=== PATIENT | male | born 1945 | race Caucasian/White ===

== ENCOUNTER → 2017-04-01 | Outpatient (CLI) | payer MEDICARE, OTHER ==
[~2017-04-01] MED LIST: AMAN100T PO; ASPI-1197 PO; CHOL200074 PO; ESCI20TA36 PO; FLUN25H NS; FURO20TA4 PO; LEVO100T12 PO; LORA0.5T2 PO; MULT-1258 PO; NABU500T3 PO; PANT40TA25 PO; POTA20TA82 PO; PRAV40TA3 PO; PREG75 PO; PROP80TA4 PO; QUET100T70 PO; RIVA4.5C5 PO; ROPI3TAB3 PO; TRIH2TAB3 PO; VERE240SR PO; VITA100049 PO
== END | disposition home or self-care (01) ==
LOC: SHCH 10:07
PROVIDERS: ATTEND Internal Medicine Cardiovascular Disease
DX: I10 Essential (primary) hypertension (principal)
CPT/HCPCS: 93306

== ENCOUNTER → 2017-04-17 | Outpatient (CLI) | payer MEDICARE, OTHER ==
[~2017-04-17] MED LIST changes: +REGADENOSON 0.4 MG/5 ML PF SYG IVP SCH
== END | disposition home or self-care (01) ==
LOC: SHCH 08:56
PROVIDERS: ATTEND Internal Medicine Cardiovascular Disease
DX: R07.9 Chest pain, unspecified (principal); R06.00 Dyspnea, unspecified
CPT/HCPCS: 78452; 93017; 96374; A9500 ×2; J2785

== ENCOUNTER 2017-06-07 19:27 | Observation (INO) | payer MEDICARE, OTHER ==
[~2017-06-07] VITALS: Ht 185.4 cm; Wt 149.1 kg
[2017-06-07 20:23] LABS: BASOPHILS % (AUTO) 1.2 % (0.0-5.0); EOSINOPHILS % (AUTO) 3.7 % (0.0-8.0); HEMATOCRIT 39.4 % (42-54); LYMPHOCYTES % (AUTO) 22.4 % (21.0-51.0); MEAN CORPUSCULAR HEMOGLOBIN 31.6 pg (27.0-33.0); MEAN CORPUSCULAR HGB CONC 35.3 g/dL (32.0-36.0); MEAN CORPUSCULAR VOLUME 89.6 fL (79-99); MONOCYTES % (AUTO) 9.1 % (3.0-13.0); NEUTROPHILS % (AUTO) 63.6 % (40.0-77.0); PLATELET COUNT (AUTO) 172 K/uL (130-400); RED BLOOD CELL COUNT(AUTO) 4.39 MIL/uL (4.50-6.20); RED CELL DISTRIBUTION WIDTH 13.2 % (11.0-15.5); WHITE BLOOD COUNT (AUTO) 7.6 K/uL (4.8-10.8)
[2017-06-07] MEDS ORDERED: ASPIRIN 325 MG TABLET ONE (20:31)
[2017-06-07 20:38] LABS: INR 0.95 (0.85-1.15); PARTIAL THROMBOPLASTIN TIME 26.7 SEC (26.3-35.5)
[2017-06-07 21:40] LABS: CREATININE 1.2 mg/dL (0.5-1.5); POTASSIUM 4.2 mmol/L (3.5-5.1)
[2017-06-07 21:45] LABS: ALBUMIN 3.1 g/dL (3.5-5.0); BILIRUBIN,TOTAL 0.4 mg/dL (0.2-1.0); TOTAL PROTEIN, SERUM 6.6 g/dL (6.0-8.3)
[2017-06-07] MEDS ORDERED: IOPAMIDOL-370 100 ML VIAL IV ONE (21:59)
[2017-06-07 23:57] VITALS: BP 164/73
[2017-06-08] MEDS ORDERED: AMAN100T PO (00:54)
[2017-06-08] MEDS ORDERED: PRAV40TA3 PO (00:54)
[2017-06-08] MEDS ORDERED: PANT40TA25 PO (00:54)
[2017-06-08] MEDS ORDERED: FLUN25H NS (00:54)
[2017-06-08] MEDS ORDERED: TRIH2TAB3 PO (00:54)
[2017-06-08] MEDS ORDERED: ESCI20TA36 PO (00:54)
[2017-06-08] MEDS ORDERED: QUET100T70 PO (00:54)
[2017-06-08] MEDS ORDERED: PROP80TA4 PO (00:54)
[2017-06-08] MEDS ORDERED: PREG75 PO (00:54)
[2017-06-08] MEDS ORDERED: RIVA4.5C5 PO (00:54)
[2017-06-08] MEDS ORDERED: CHOL200074 PO (00:54)
[2017-06-08] MEDS ORDERED: VITA100049 PO (00:54)
[2017-06-08] MEDS ORDERED: FURO20TA4 PO (00:54)
[2017-06-08] MEDS ORDERED: ASPI-1197 PO (00:54)
[2017-06-08] MEDS ORDERED: ROPI3TAB3 PO (00:54)
[2017-06-08] MEDS ORDERED: VERE240SR PO (00:54)
[2017-06-08] MEDS ORDERED: MULT-1258 PO (00:54)
[2017-06-08] MEDS ORDERED: NABU500T3 PO (00:54)
[2017-06-08] MEDS ORDERED: LORA0.5T2 PO (00:54)
[2017-06-08] MEDS ORDERED: POTA20TA82 PO (00:54)
[2017-06-08] MEDS ORDERED: LEVO100T12 PO (00:54)
[2017-06-08 03:29] VITALS: BP 142/76
[2017-06-08 07:05] VITALS: BP 156/85
[2017-06-08] MEDS ORDERED: ASPIRIN 325 MG TABLET PO SCH ×2 (09:00)
[2017-06-08] MEDS ORDERED: PANTOPRAZOLE SODIUM 40 MG TABLET.DR PO SCH ×2 (09:00)
[2017-06-08] MEDS ORDERED: GADOBENATE DIMEGLUMINE 20 ML IV ONE (09:41)
[2017-06-08 11:10] VITALS: BP 159/76
[2017-06-08 16:15] VITALS: BP 148/81
== END 2017-06-08 18:29 | disposition home or self-care (01) ==
LOC: EDH 19:27 → EDHIP 21:32 → 2AH 23:45
PROVIDERS: ADMIT Internal Medicine; ATTEND Internal Medicine
DX: G45.9 Transient cerebral ischemic attack, unspecified (principal); E03.9 Hypothyroidism, unspecified; E78.5 Hyperlipidemia, unspecified; I25.10 Atherosclerotic heart disease of native coronary artery without angina pectoris; G47.30 Sleep apnea, unspecified; K21.9 Gastro-esophageal reflux disease without esophagitis; G20 Parkinson's disease; F02.80 Dementia in other diseases classified elsewhere, unspecified severity, without behavioral disturbance, psychotic disturbance, mood disturbance, and anxiety; Z96.651 Presence of right artificial knee joint
CPT/HCPCS: 36415; 70450; 70496; 70498; 70544; 70553; 80053; 82948; 85025; 85610; 85730; 93005; 99291; A9577; G0378 ×21; Q9967

== ENCOUNTER 2018-02-05 12:33 | Inpatient (IN) | payer MEDICARE, OTHER ==
[~2018-02-05] VITALS: Ht 185.4 cm; Wt 144.4 kg
[~2018-02-05 12:33] MED LIST changes: -REGADENOSON 0.4 MG/5 ML PF SYG IVP SCH; -ROPI3TAB3 PO; +ROPI3TAB5 PO
[2018-02-05 13:54] LABS: BASOPHILS % (AUTO) 1.5 % (0.0-5.0); EOSINOPHILS % (AUTO) 4.2 % (0.0-8.0); LYMPHOCYTES % (AUTO) 19.8 % (21.0-51.0); MEAN CORPUSCULAR HEMOGLOBIN 31.5 pg (27.0-33.0); MEAN CORPUSCULAR HGB CONC 34.2 g/dL (32.0-36.0); MEAN CORPUSCULAR VOLUME 92.2 fL (79-99); MONOCYTES % (AUTO) 9.1 % (3.0-13.0); NEUTROPHILS % (AUTO) 65.4 % (40.0-77.0); PLATELET COUNT (AUTO) 141 K/uL (130-400); RED BLOOD CELL COUNT(AUTO) 4.66 MIL/uL (4.50-6.20); RED CELL DISTRIBUTION WIDTH 13.3 % (11.0-15.5)
[2018-02-05 14:03] LABS: CREATININE 1.2 mg/dL (0.5-1.5); POTASSIUM 3.8 mmol/L (3.5-5.1)
[2018-02-05 14:08] LABS: ALBUMIN 3.5 g/dL (3.5-5.0); BILIRUBIN,TOTAL 0.5 mg/dL (0.2-1.0)
[2018-02-05 14:22] LABS: APPEARANCE,URINE Clear (CLEAR); BILIRUBIN,URINE Negative (NEGATIVE); COLOR,URINE Yellow (YELLOW); GLUCOSE, URINE (UA) Negative (NEGATIVE); KETONES,URINE Negative (NEGATIVE); LEUKOCYTE ESTERASE ,URINE Negative (NEGATIVE); NITRATE,URINE Negative (NEGATIVE); OCCULT BLOOD,URINE Negative (NEGATIVE); PROTEIN,URINE Negative (NEGATIVE); UROBILINOGEN,URINE 0.2 mg/dL (0.2-1.0)
[2018-02-05] MEDS ORDERED: FAMOTIDINE 20MG TAB 20 MG TAB ONE (17:24)
[2018-02-05 19:40] VITALS: BP 140/80
[2018-02-05] MEDS: FAMOTIDINE 20MG TAB 20 MG TAB PO SCH (21:00)
[2018-02-06] VITALS (7 sets, daily range): BP systolic 114–168; BP diastolic 60–98
[2018-02-06] MEDS ORDERED: LORAZEPAM 0.5 MG TABLET PO PRN (02:00)
[2018-02-06] MEDS ORDERED: PANT40TA25 PO (02:05)
[2018-02-06] MEDS ORDERED: ROPI2TAB2 PO (02:05)
[2018-02-06] MEDS ORDERED: BUDE10.2 IH (02:05)
[2018-02-06] MEDS ORDERED: RIVA6CAP5 PO (02:05)
[2018-02-06] MEDS ORDERED: OXYB5TAB10 PO (02:05)
[2018-02-06] MEDS ORDERED: ASPI-1012 PO (02:05)
[2018-02-06] MEDS ORDERED: LORA0.5T2 PO (02:05)
[2018-02-06] MEDS ORDERED: VERE240SR PO (02:05)
[2018-02-06] MEDS ORDERED: TRIH2TAB3 PO (02:05)
[2018-02-06] MEDS ORDERED: ESCI20TA36 PO (02:05)
[2018-02-06] MEDS ORDERED: GABA-531 PO (02:05)
[2018-02-06] MEDS ORDERED: QUET100T70 PO (02:05)
[2018-02-06] MEDS ORDERED: ALBUHFA IH (02:05)
[2018-02-06] MEDS ORDERED: ALBUTEROL SULFATE 0.083% 2.5 MG/3 ML INH IH PRN (06:45)
[2018-02-06] MEDS: OXYBUTYNIN CHLORIDE 5 MG TABLET PO SCH (09:00)
[2018-02-06] MEDS: GABAPENTIN 300 MG CAPSULE PO SCH ×2 (09:00→20:25)
[2018-02-06] MEDS: AMANTADINE HCL 100 MG CAPSULE PO SCH ×2 (09:00→20:24)
[2018-02-06] MEDS: MULTIVITAMIN TABLET PO SCH (09:00)
[2018-02-06] MEDS: FLUNISOLIDE 25 MCG/SPRAY 25 ML NASAL SPRY NASAL SCH ×2 (09:00→20:24)
[2018-02-06] MEDS: CITALOPRAM 20 MG TABLET PO SCH (09:00)
[2018-02-06] MEDS: RIVASTIGMINE 6 MG PO SCH ×2 (09:00→20:24)
[2018-02-06] MEDS: LEVOTHYROXINE 100 MCG TABLET PO SCH (09:00)
[2018-02-06] MEDS: FAMOTIDINE 20MG TAB 20 MG TAB PO SCH ×2 (09:00→20:25)
[2018-02-06] MEDS: VERAPAMIL HCL 240 MG SRTAB PO SCH (09:00)
[2018-02-06] MEDS: ROPINIROLE HCL 1 MG TABLET PO SCH ×3 (09:00→20:25)
[2018-02-06] MEDS: PANTOPRAZOLE SODIUM 40 MG TABLET.DR PO SCH (09:00)
[2018-02-06] MEDS: QUETIAPINE FUMARATE 100 MG TAB PO SCH (09:00)
[2018-02-06] MEDS: FUROSEMIDE 20 MG TABLET PO SCH (09:00)
[2018-02-06] MEDS: ASPIRIN 325 MG TABLET PO SCH (09:00)
[2018-02-06] MEDS: [UNRECOGNIZED DRUG - OTHER] PO SCH (09:00)
[2018-02-06] MEDS: TRIHEXYPHENIDYL 2 MG PO SCH ×2 (09:00→20:24)
[2018-02-06] MEDS: ALBUTEROL SULFATE 0.083% 2.5 MG/3 ML INH IH SCH ×3 (11:17→23:38)
--- NOTE | 2018-02-06 14:04 | NUR ---
DCP CM met with pt discussed dc plans. Pt is independent prior to admission, lives at home with spouse. Has a walker, quad cane, cpap. Denies any other equipments/services. Pt feels safe to go back home, spouse able to assist with transportation and needs as necessary. DC plan to home once stable. CM to cont to follow up. Addendum: 02/06/18 at 1405 by TEODORA ROGERS LVN CM Amended: Links added.
[2018-02-06] MEDS: BUDESONIDE 0.5 MG/2 ML INH IH SCH (19:37)
[2018-02-06] MEDS ORDERED: ATORVASTATIN CALCIUM 10 MG TABLET PO SCH (21:00)
[2018-02-06] MEDS ORDERED: QUETIAPINE FUMARATE 100 MG TAB PO SCH (21:00)
[2018-02-07 04:30] VITALS: BP 124/73
[2018-02-07 05:47] LABS: BASOPHILS % (AUTO) 1.2 % (0.0-5.0); EOSINOPHILS % (AUTO) 4.4 % (0.0-8.0); HEMATOCRIT 39.9 % (42-54); LYMPHOCYTES % (AUTO) 23.2 % (21.0-51.0); MEAN CORPUSCULAR HEMOGLOBIN 31.6 pg (27.0-33.0); MEAN CORPUSCULAR HGB CONC 34.2 g/dL (32.0-36.0); MEAN CORPUSCULAR VOLUME 92.3 fL (79-99); MONOCYTES % (AUTO) 9.2 % (3.0-13.0); PLATELET COUNT (AUTO) 142 K/uL (130-400); RED BLOOD CELL COUNT(AUTO) 4.32 MIL/uL (4.50-6.20); RED CELL DISTRIBUTION WIDTH 13.8 % (11.0-15.5); WHITE BLOOD COUNT (AUTO) 5.5 K/uL (4.8-10.8)
[2018-02-07 06:03] LABS: ALBUMIN 3.2 g/dL (3.5-5.0); BILIRUBIN,TOTAL 0.7 mg/dL (0.2-1.0); CREATININE 1.2 mg/dL (0.5-1.5); TOTAL PROTEIN, SERUM 6.4 g/dL (6.0-8.3)
[2018-02-07] MEDS: ALBUTEROL SULFATE 0.083% 2.5 MG/3 ML INH IH SCH ×2 (06:37→11:02)
[2018-02-07] MEDS: BUDESONIDE 0.5 MG/2 ML INH IH SCH (06:37)
[2018-02-07] MEDS: ASPIRIN 325 MG TABLET PO SCH (09:00)
[2018-02-07] MEDS: PANTOPRAZOLE SODIUM 40 MG TABLET.DR PO SCH (09:00)
[2018-02-07] MEDS: QUETIAPINE FUMARATE 100 MG TAB PO SCH (09:00)
[2018-02-07] MEDS: [UNRECOGNIZED DRUG - OTHER] PO SCH (09:00)
[2018-02-07] MEDS: ROPINIROLE HCL 1 MG TABLET PO SCH (09:00)
[2018-02-07] MEDS: FLUNISOLIDE 25 MCG/SPRAY 25 ML NASAL SPRY NASAL SCH (09:00)
[2018-02-07] MEDS: CITALOPRAM 20 MG TABLET PO SCH (09:00)
[2018-02-07] MEDS: RIVASTIGMINE 6 MG PO SCH (09:00)
[2018-02-07] MEDS: VERAPAMIL HCL 240 MG SRTAB PO SCH (09:00)
[2018-02-07] MEDS: LEVOTHYROXINE 100 MCG TABLET PO SCH (09:00)
[2018-02-07] MEDS: GABAPENTIN 300 MG CAPSULE PO SCH (09:00)
[2018-02-07] MEDS: TRIHEXYPHENIDYL 2 MG PO SCH (09:00)
[2018-02-07] MEDS: FUROSEMIDE 20 MG TABLET PO SCH (09:00)
[2018-02-07] MEDS: OXYBUTYNIN CHLORIDE 5 MG TABLET PO SCH (09:00)
[2018-02-07] MEDS: MULTIVITAMIN TABLET PO SCH (09:00)
[2018-02-07] MEDS: FAMOTIDINE 20MG TAB 20 MG TAB PO SCH (09:00)
[2018-02-07] MEDS: AMANTADINE HCL 100 MG CAPSULE PO SCH (09:00)
[2018-02-07 09:48] VITALS: BP 141/84
== END 2018-02-07 12:55 | disposition home or self-care (01) | DRG 552 ==
LOC: EDH 12:33 → EDHIP 15:24 → INTOOBSV 15:24 → OBSVTOIN 15:24 → 3DH 18:59
PROVIDERS: ADMIT Internal Medicine; ATTEND Internal Medicine
DX: M48.02 Spinal stenosis, cervical region (principal); F05 Delirium due to known physiological condition; E03.9 Hypothyroidism, unspecified; E78.5 Hyperlipidemia, unspecified; F02.80 Dementia in other diseases classified elsewhere, unspecified severity, without behavioral disturbance, psychotic disturbance, mood disturbance, and anxiety; G31.83 Neurocognitive disorder with Lewy bodies; G47.30 Sleep apnea, unspecified; I10 Essential (primary) hypertension; I25.10 Atherosclerotic heart disease of native coronary artery without angina pectoris; K21.9 Gastro-esophageal reflux disease without esophagitis; M48.061 Spinal stenosis, lumbar region without neurogenic claudication; M50.31 Other cervical disc degeneration, high cervical region; M51.36 Other intervertebral disc degeneration, lumbar region; Z96.651 Presence of right artificial knee joint; G62.9 Polyneuropathy, unspecified; R26.81 Unsteadiness on feet; S40.812A Abrasion of left upper arm, initial encounter; W06.XXXA Fall from bed, initial encounter; Y92.003 Bedroom of unspecified non-institutional (private) residence as the place of occurrence of the external cause; Z88.0 Allergy status to penicillin; Y93.89 Activity, other specified; Y99.8 Other external cause status; Z88.8 Allergy status to other drugs, medicaments and biological substances; Z91.040 Latex allergy status
CPT/HCPCS: 36415; 70450; 70486; 71045; 72125; 72131; 80053; 81003; 82550; 83880; 84484; 85025; 93005; 94640; 94664; G0378

== ENCOUNTER → 2018-08-11 | Outpatient (CLI) | payer MEDICARE, OTHER ==
[~2018-08-11] MED LIST changes: +ALBUHFA IH; +AMIL5TAB8 PO; +ASPI-1012 PO; -ASPI-1197 PO; +BUDE10.2 IH; +CARV6.25 PO; +CHLO25TA3 PO; -CHOL200074 PO; +GABA-531 PO; +LEVO100 PO; +OXYB5TAB10 PO; -POTA20TA82 PO; -PREG75 PO; -PROP80TA4 PO; -RIVA4.5C5 PO; +RIVA6CAP5 PO; +ROPI2TAB2 PO; -ROPI3TAB5 PO; +SERT100T12 PO; +TIOT18CA3 IH; +VERA120C2 PO; -VITA100049 PO
== END | disposition home or self-care (01) ==
LOC: RAH 14:18
PROVIDERS: ATTEND Internal Medicine
DX: R22.43 Localized swelling, mass and lump, lower limb, bilateral (principal)
CPT/HCPCS: 93970

== ENCOUNTER 2018-08-14 14:52 | Observation (INO) | payer MEDICARE, OTHER ==
[~2018-08-14] VITALS: Ht 185.4 cm; Wt 141.2 kg
[~2018-08-14 14:52] MED LIST changes: -AMIL5TAB8 PO; -CARV6.25 PO; -CHLO25TA3 PO; -LEVO100 PO; -SERT100T12 PO; -TIOT18CA3 IH; -VERA120C2 PO
[2018-08-14 15:18] LABS: BASOPHILS % (AUTO) 0.3 % (0.0-5.0); HEMATOCRIT 44.3 % (42-54); LYMPHOCYTES % (AUTO) 24.9 % (21.0-51.0); MEAN CORPUSCULAR HEMOGLOBIN 31.4 pg (27.0-33.0); MEAN CORPUSCULAR HGB CONC 34.6 g/dL (32.0-36.0); MEAN CORPUSCULAR VOLUME 90.8 fL (79-99); MONOCYTES % (AUTO) 9.3 % (3.0-13.0); NEUTROPHILS % (AUTO) 61.5 % (40.0-77.0); PLATELET COUNT (AUTO) 158 K/uL (130-400); RED BLOOD CELL COUNT(AUTO) 4.88 MIL/uL (4.50-6.20); RED CELL DISTRIBUTION WIDTH 13.5 % (11.0-15.5); WHITE BLOOD COUNT (AUTO) 6.5 K/uL (4.8-10.8)
[2018-08-14] MEDS ORDERED: ASPIRIN 325 MG TABLET ONE (15:21)
[2018-08-14 15:28] LABS: CREATININE 1.3 mg/dL (0.5-1.5); POTASSIUM 3.9 mmol/L (3.5-5.1)
[2018-08-14 15:33] LABS: INR 0.98 (0.85-1.15); PARTIAL THROMBOPLASTIN TIME 26.9 SEC (26.3-35.5); PROTHROMBIN TIME 10.3 SEC (9.6-11.6)
[2018-08-14 15:41] LABS: ALBUMIN 3.5 g/dL (3.5-5.0); BILIRUBIN,TOTAL 0.7 mg/dL (0.2-1.0)
[2018-08-14] MEDS ORDERED: IOHEXOL 350 MG/ML 100ML INFUS..BTL IV ONE (19:10)
[2018-08-14] MEDS ORDERED: NITROGLYCERIN 0.4 MG SL TAB SL PRN (21:30)
[2018-08-14 22:15] VITALS: BP 142/93
[2018-08-14 23:05] VITALS: BP 131/74
[2018-08-14 23:48] LABS: CREATINE KINASE, TOTAL 76 U/L (21-232); MYOGLOBIN 96 ng/mL (10-92); TROPONIN I < 0.04 ng/mL (0.00-0.06)
[2018-08-15] MEDS ORDERED: LORAZEPAM 0.5 MG TABLET PO PRN (01:30)
[2018-08-15] MEDS ORDERED: ALBUTEROL SULFATE 0.083% 2.5 MG/3 ML INH IH PRN (01:30)
[2018-08-15] MEDS ORDERED: TIOT18CA3 IH (01:40)
[2018-08-15] MEDS ORDERED: VERA120C2 PO (01:40)
[2018-08-15] MEDS ORDERED: CHLO25TA3 PO (01:40)
[2018-08-15] MEDS ORDERED: LEVO100 PO (01:40)
[2018-08-15] MEDS ORDERED: AMIL5TAB8 PO (01:40)
[2018-08-15] MEDS ORDERED: CARV6.25 PO (01:40)
[2018-08-15] MEDS ORDERED: SERT100T12 PO (01:40)
[2018-08-15 03:10] VITALS: BP_SYST 113; BP_SYST 128; BP_DIAS 52; BP_DIAS 74
[2018-08-15 04:40] LABS: CREATINE KINASE, TOTAL 89 U/L (21-232); MYOGLOBIN 102 ng/mL (10-92); TROPONIN I < 0.04 ng/mL (0.00-0.06)
[2018-08-15] MEDS ORDERED: BUDESONIDE 0.5 MG/2 ML INH IH SCH (06:00)
[2018-08-15] MEDS ORDERED: LEVOTHYROXINE 100 MCG TABLET ONE (06:21)
[2018-08-15] MEDS: ALBUTEROL SULFATE 0.083% 2.5 MG/3 ML INH IH SCH ×2 (06:26→11:45)
[2018-08-15] MEDS: IPRATROPIUM 0.5 MG/2.5 ML INH IH SCH ×2 (06:26→11:45)
[2018-08-15 07:00] VITALS: BP 145/74
[2018-08-15] MEDS ORDERED: LEVOTHYROXINE 100 MCG TABLET PO SCH (07:30)
[2018-08-15] MEDS ORDERED: ***HM***Chlorthalidone 25 MG PO SCH (09:00)
[2018-08-15] MEDS ORDERED: FLUNISOLIDE 25 MCG/SPRAY 25 ML NASAL SPRY NASAL SCH (09:00)
[2018-08-15] MEDS ORDERED: OXYBUTYNIN CHLORIDE 5 MG TABLET PO SCH (09:00)
[2018-08-15] MEDS ORDERED: SERTRALINE HCL 50 MG TABLET PO SCH (09:00)
[2018-08-15] MEDS ORDERED: AMILORIDE HCL 5 MG TABLET PO SCH (09:00)
[2018-08-15] MEDS ORDERED: PANTOPRAZOLE SODIUM 40 MG TABLET.DR PO SCH (09:00)
[2018-08-15] MEDS ORDERED: AMANTADINE HCL 100 MG CAPSULE PO SCH (09:00)
[2018-08-15] MEDS ORDERED: NABUMETONE 500 MG PO SCH (09:00)
[2018-08-15] MEDS ORDERED: SUB TO IPRATROPIUM 0.5MG/2.5ML PER P&T IH SCH (09:00)
[2018-08-15] MEDS ORDERED: MULTIVITAMIN WITH MINERALS TABLET PO SCH (09:00)
[2018-08-15] MEDS ORDERED: ASPIRIN 325 MG TABLET PO SCH (09:00)
[2018-08-15] MEDS ORDERED: RIVASTIGMINE TARTRATE 6 MG PO SCH (09:00)
[2018-08-15] MEDS ORDERED: SUB PER P&T FOR ASTHMA OR COPD RECOMMENDATION IH SCH (09:00)
[2018-08-15] MEDS ORDERED: QUETIAPINE FUMARATE 25 MG TAB PO SCH ×2 (09:00→21:00)
[2018-08-15] MEDS ORDERED: CARVEDILOL 6.25 MG TABLET PO SCH (09:00)
[2018-08-15] MEDS ORDERED: VERAPAMIL HCL 120 MG PO SCH (09:00)
[2018-08-15] MEDS: ROPINIROLE HCL 1 MG TABLET PO SCH ×2 (09:58→15:58)
[2018-08-15 11:00] VITALS: BP 124/56
[2018-08-15] MEDS ORDERED: ***HM***Pravastatin Sodium 40 MG PO SCH (21:00)
== END 2018-08-15 18:18 | disposition home or self-care (01) ==
LOC: EDH 14:52 → INTOOBSV 20:35 → EDHIP 20:35 → 4AH 21:32
PROVIDERS: ADMIT Internal Medicine; ATTEND Internal Medicine
DX: R07.89 Other chest pain (principal); I10 Essential (primary) hypertension; E78.5 Hyperlipidemia, unspecified; R55 Syncope and collapse; J44.9 Chronic obstructive pulmonary disease, unspecified; R09.02 Hypoxemia; G20 Parkinson's disease; F32.9 Major depressive disorder, single episode, unspecified; F02.80 Dementia in other diseases classified elsewhere, unspecified severity, without behavioral disturbance, psychotic disturbance, mood disturbance, and anxiety; Z86.73 Personal history of transient ischemic attack (TIA), and cerebral infarction without residual deficits; Z88.0 Allergy status to penicillin; Z79.899 Other long term (current) drug therapy
CPT/HCPCS: 36415 ×2; 71045; 71275; 80053; 82550 ×3; 83874 ×3; 83880; 84484 ×3; 85025; 85378; 85610; 85651; 85730; 87040 ×2; 93005; 94640 ×3; 94664; 99291; G0378 ×20; Q9967

== ENCOUNTER 2020-12-06 14:09 | Emergency (ER) | payer OTHER ==
[~2020-12-06] VITALS: Ht 185.4 cm; Wt 158.8 kg
[~2020-12-06 14:09] MED LIST changes: +AMIL5TAB8 PO; +CARV6.25 PO; +CHLO25TA3 PO; -ESCI20TA36 PO; -FURO20TA4 PO; -GABA-531 PO; +LEVO100 PO; -LEVO100T12 PO; +NABU-141 PO; -NABU500T3 PO; -OXYB5TAB10 PO; +OXYB5TAB15 PO; -PANT40TA25 PO; +PANT40TA54 PO; +QUET100T34 PO; -QUET100T70 PO; +RIVA6CAP14 PO; -RIVA6CAP5 PO; -ROPI2TAB2 PO; +ROPI2TAB7 PO; +SERT-440 PO; +TIOT18CA3 IH; -TRIH2TAB3 PO; +VERA120C2 PO; -VERE240SR PO
[2020-12-06 16:26] LABS: BASOPHILS % (AUTO) 1.1 % (0.0-5.0); EOSINOPHILS % (AUTO) 3.9 % (0.0-8.0); HEMATOCRIT 40.6 % (42-54); MEAN CORPUSCULAR HEMOGLOBIN 31.6 pg (27.0-33.0); MEAN CORPUSCULAR HGB CONC 35.5 g/dL (32.0-36.0); MEAN CORPUSCULAR VOLUME 89.2 fL (79-99); MONOCYTES % (AUTO) 9.3 % (3.0-13.0); NEUTROPHILS % (AUTO) 62.9 % (40.0-77.0); PLATELET COUNT (AUTO) 142 K/uL (130-400); RED BLOOD CELL COUNT(AUTO) 4.55 MIL/uL (4.50-6.20); RED CELL DISTRIBUTION WIDTH 12.9 % (11.0-15.5); WHITE BLOOD COUNT (AUTO) 7.2 K/uL (4.8-10.8)
[2020-12-06 16:40] LABS: APPEARANCE,URINE Clear (CLEAR); BILIRUBIN,URINE Negative (NEGATIVE); COLOR,URINE Dark Yellow (YELLOW); GLUCOSE, URINE (UA) Negative (NEGATIVE); KETONES,URINE Trace mg/dL (NEGATIVE); LEUKOCYTE ESTERASE ,URINE Small (NEGATIVE); NITRATE,URINE Negative (NEGATIVE); OCCULT BLOOD,URINE Negative (NEGATIVE); PH,URINE 6.5 (5.0-8.0); PROTEIN,URINE Negative (NEGATIVE)
[2020-12-06 16:42] LABS: CREATININE 1.3 mg/dL (0.5-1.5); POTASSIUM 3.6 mmol/L (3.5-5.1)
[2020-12-06 16:52] LABS: BACTERIA,URINE Rare /HPF (None Seen); MUCUS,URINE Few LPF (None Seen); RBC,URINE 0-1 /HPF (0-1); SQUAMOUS EPITHELIAL CELL,UR Few /HPF (0-2)
[2020-12-06 17:49] VITALS: BP 115/94
== END 2020-12-06 18:13 | disposition home or self-care (01) ==
LOC: EDH 14:09
DX: G20 Parkinson's disease (principal); F02.80 Dementia in other diseases classified elsewhere, unspecified severity, without behavioral disturbance, psychotic disturbance, mood disturbance, and anxiety; R51.9 Headache, unspecified; R41.0 Disorientation, unspecified; I10 Essential (primary) hypertension; F32.A Depression, unspecified; J44.9 Chronic obstructive pulmonary disease, unspecified; Z88.0 Allergy status to penicillin; Z91.040 Latex allergy status; Z79.82 Long term (current) use of aspirin; Z79.51 Long term (current) use of inhaled steroids; Z79.1 Long term (current) use of non-steroidal anti-inflammatories (NSAID); Z79.899 Other long term (current) drug therapy; X58.XXXA Exposure to other specified factors, initial encounter; Y93.89 Activity, other specified; Y92.89 Other specified places as the place of occurrence of the external cause; Y99.8 Other external cause status
CPT/HCPCS: 36415; 70450; 80048; 81001; 85025